=== PATIENT | female | born 1980 | race Caucasian/White ===

== ENCOUNTER 2017-03-06 14:29 | Emergency (ER) | payer OTHER ==
[~2017-03-06] VITALS: Ht 340.4 cm; Wt 68.0 kg
[2017-03-06] MEDS ORDERED: ESTRADIOL0.5 MG (15:28)
[2017-03-06] MEDS ORDERED: DILANTIN (15:28)
[2017-03-06] MEDS ORDERED: IBUPROFEN (15:28)
[2017-03-06] MEDS ORDERED: PRILOSEC (15:29)
[2017-03-06] MEDS ORDERED: VITAMIN D400 UNI2 (15:29)
[2017-03-06] MEDS ORDERED: FLEXERIL10 MG (15:29)
[2017-03-06] MEDS ORDERED: LIPITOR (15:29)
== END 2017-03-06 16:55 | disposition left against medical advice (07) ==
LOC: CED 14:29 → CFTX 14:29 → CED 16:15
DX: Z53.21 Procedure and treatment not carried out due to patient leaving prior to being seen by health care provider (principal)

== ENCOUNTER 2017-03-06 15:23 | Emergency (ER) | payer OTHER ==
[2017-03-06] MEDS ORDERED: IBUPROFEN (15:28)
[2017-03-06] MEDS ORDERED: ESTRADIOL0.5 MG (15:28)
[2017-03-06] MEDS ORDERED: DILANTIN (15:28)
[2017-03-06] MEDS ORDERED: PRILOSEC (15:29)
[2017-03-06] MEDS ORDERED: LIPITOR (15:29)
[2017-03-06] MEDS ORDERED: FLEXERIL10 MG (15:29)
[2017-03-06] MEDS ORDERED: VITAMIN D400 UNI2 (15:29)
== END 2017-03-06 17:11 | disposition home or self-care (01) ==
LOC: SED 15:23
DX: M21.612 Bunion of left foot (principal)
CPT/HCPCS: 29405; 99283